=== PATIENT | female | born 1985 | race Caucasian/White ===

== ENCOUNTER 2019-12-27 07:25 | Emergency (ER) | payer BC ==
[~2019-12-27] VITALS: Ht 167.6 cm; Wt 104.3 kg
[2019-12-27 07:33] VITALS: BP 119/69
--- NOTE | 2019-12-27 07:37 | NUR ---
Pt ambulated to restroom to provide urine sample
--- NOTE | 2019-12-27 07:49 | NUR ---
34 y/o F presents to ER c/o N/V since 6pm last night, approx 10 episodes. Per pt her last meal was 12/25/19. Pt has constant, sharp epigastric pain. Pain level 10/10. Per pt she had x2 episodes of diarrhea on Monday and x1 episode on Monday. Pt A&O x4. Respirations even and unlabored. Pt has tachycardia at 123. HOB elevated, bed in lowest position, side rail up x1. Waiting for ERMD to evaluate pt. Allergies: NKA Med hx: None
--- NOTE | 2019-12-27 07:54 | NUR ---
Dr. Stockton is evaluating the patient at bedside.
[2019-12-27] MEDS ORDERED: KETOROLAC 30 MG/ML VIAL IVP ONE (08:00)
[2019-12-27] MEDS ORDERED: NACL 0.9% 1,000 ML IV ONE (08:00)
[2019-12-27] MEDS ORDERED: ONDANSETRON 4 MG/2 ML VIAL IVP ONE (08:00)
--- NOTE | 2019-12-27 08:15 | NUR ---
Lab at bedside
[2019-12-27 08:26] LABS: BASOPHILS # (AUTO) 0.1 K/uL (0.00-0.22); BASOPHILS % (AUTO) 0.9 % (0.0-2.0); EOSINOPHILS % (AUTO) 0.1 % (0.0-4.0); HEMATOCRIT 35.5 % (36-48); HEMOGLOBIN 11.5 g/dL (12.0-16.0); LYMPHOCYTES # (AUTO) 0.5 K/uL (2.5-16.5); MEAN CORPUSCULAR HEMOGLOBIN 27 pg (27-31); MEAN CORPUSCULAR HGB CONC 32 g/dL (33-37); MONOCYTES # (AUTO) 0.5 K/uL (0.8-1.0); NEUTROPHILS # (AUTO) 4.8 K/uL (1.8-7.7); PLATELET COUNT (AUTO) 205 K/uL (140-450); RED BLOOD CELL COUNT(AUTO) 4.33 MIL/uL (4.20-5.40); RED CELL DISTRIBUTION WIDTH 14.6 % (11.6-13.7); WHITE BLOOD COUNT (AUTO) 5.8 K/uL (4.8-10.8)
[2019-12-27 08:43] LABS: APPEARANCE,URINE CLOUDY (CLEAR); BILIRUBIN,URINE 1+ (NEGATIVE); BLOOD, URINE 3+ (NEGATIVE); COLOR,URINE YELLOW (YELLOW); LEUKOCYTE ESTERASE ,URINE TRACE (NEGATIVE); NITRITE, URINE NEGATIVE (NEGATIVE); UGLUCOSE NEGATIVE (NEGATIVE)
[2019-12-27 08:49] LABS: URINE AMORPHOUS URATE 1+ /HPF (None Seen)
[2019-12-27 08:56] LABS: ANION GAP 12.3 (8-16); CARBON DIOXIDE 26.5 mmol/L (21-32); CREATININE 1.1 mg/dL (0.6-1.3); POTASSIUM 3.8 mmol/L (3.5-5.1); TOTAL BILIRUBIN 0.6 mg/dL (0.0-1.0)
[2019-12-27] MEDS ORDERED: cefTRIAXone 1,000 MG VIAL ONE (09:13)
--- NOTE | 2019-12-27 10:32 | NUR ---
Dr. Stockton is evaluating the patient at bedside.
[2019-12-27 10:35] VITALS: BP 119/69
--- NOTE | 2019-12-27 10:35 | NUR ---
Patient discharged with v/s stable. Written and verbal after care instructions given and explained. Patient alert, oriented and verbalized understanding of instructions. Ambulatory with steady gait. All questions addressed prior to discharge. ID band removed. Patient advised to follow up with PMD. Rx of ZOFRAN,MACROBID given. Patient educated on indication of medication including possible reaction and side effects. Opportunity to ask questions provided and answered. D/C BY DR HENDERSON
== END 2019-12-27 10:33 | disposition home or self-care (01) ==
LOC: MED 07:25
DX: N39.0 Urinary tract infection, site not specified (principal)
CPT/HCPCS: 36415; 80053; 81001; 81025; 83690; 85025; 87086; 96361; 96365; 96375; 99283; J0696; J1885; J2405; J7030

== ENCOUNTER 2022-08-06 14:08 | Emergency (ER) | payer BC, OTHER ==
[~2022-08-06] VITALS: Ht 170.2 cm; Wt 112.9 kg
[2022-08-06 14:09] VITALS: BP 148/91
--- NOTE | 2022-08-06 14:34 | NUR ---
BIB SELF C/O 08/29 RIGHT SHOULDER PAIN X 4 DAYS.DENIES TRAUMA. DENIES N/V/D; SKIN IS PINK/WARM/DRY; AAOX4 WITH EVEN AND STEADY GAIT; LUNGS CLEAR BL; HR EVEN AND REGULAR; PT DENIES ANY FEVER, CP, SOB, OR COUGH AT THIS TIME.
--- NOTE | 2022-08-06 14:48 | NUR ---
Patient being evaluated by DOMI LANCASTER at TRIAGE ROOM.
[2022-08-06] MEDS ORDERED: KETOROLAC 30 MG/ML VIAL IM ONE (14:55)
--- NOTE | 2022-08-06 15:06 | NUR ---
SLING APPLIED TO R ARM. + CMS
[2022-08-06] MEDS ORDERED: METH-1681 PO (16:08)
[2022-08-06] MEDS ORDERED: LID5T TP (16:08)
[2022-08-06] MEDS ORDERED: NAPR-54 PO (16:08)
[2022-08-06 16:15] VITALS: BP 125/87
--- NOTE | 2022-08-06 16:15 | NUR ---
Patient discharged with v/s stable. Written and verbal after care instructions given and explained. Patient alert, oriented and verbalized understanding of instructions. Ambulatory with steady gait. All questions addressed prior to discharge. ID band removed. Patient advised to follow up with PMD. Rx of ROBAXIN, NAPROSYN & LIDODERM given. Patient educated on indication of medication including possible reaction and side effects. Opportunity to ask questions provided and answered.
== END 2022-08-06 16:15 | disposition home or self-care (01) ==
LOC: MED 14:08
DX: S46.812A Strain of other muscles, fascia and tendons at shoulder and upper arm level, left arm, initial encounter (principal); Z79.899 Other long term (current) drug therapy; X58.XXXA Exposure to other specified factors, initial encounter; Y93.89 Activity, other specified; Y92.89 Other specified places as the place of occurrence of the external cause; Y99.8 Other external cause status
CPT/HCPCS: 73030; 96372; 99283; J1885

== ENCOUNTER 2023-01-11 21:18 | Emergency (ER) | payer OTHER ==
[~2023-01-11] VITALS: Ht 170.2 cm; Wt 113.4 kg
[~2023-01-11 21:18] MED LIST: LID5T TP; METH-1681 PO; NAPR-54 PO
--- NOTE | 2023-01-11 21:24 | NUR ---
Tash aguila in [facility] - 01/11/23 at [email or web address] Stockton examining patient.
[2023-01-11 21:46] VITALS: BP 142/86
--- NOTE | 2023-01-11 22:05 | NUR ---
Patient taken to X-ray via WC,
--- NOTE | 2023-01-11 22:21 | NUR ---
Dr. Stockton examining patient.
[2023-01-11] MEDS ORDERED: NAPR-54 PO (22:23)
[2023-01-11] MEDS ORDERED: IBUPROFEN 600 MG TAB PO ONE (22:25)
[2023-01-11 22:30] VITALS: BP 132/86
--- NOTE | 2023-01-11 22:30 | NUR ---
Patient discharged with v/s stable. Written and verbal after care instructions given and explained by Dr. Stockton. Patient alert, oriented and verbalized understanding of instructions. Ambulatory with steady gait. All questions addressed prior to discharge. ID band removed. Patient advised to follow up with PMD. Rx of Naproxen given. Patient educated on indication of medication including possible reaction and side effects. Opportunity to ask questions provided and answered.
== END 2023-01-11 22:30 | disposition home or self-care (01) ==
LOC: MED 21:18
DX: S50.02XA Contusion of left elbow, initial encounter (principal); Z98.890 Other specified postprocedural states; Z79.899 Other long term (current) drug therapy; Z79.1 Long term (current) use of non-steroidal anti-inflammatories (NSAID); W01.0XXA Fall on same level from slipping, tripping and stumbling without subsequent striking against object, initial encounter; Y92.89 Other specified places as the place of occurrence of the external cause; Y93.89 Activity, other specified; Y99.8 Other external cause status
CPT/HCPCS: 73080; 99283

== ENCOUNTER 2024-03-14 17:16 | Emergency (ER) | payer OTHER ==
[~2024-03-14] VITALS: Ht 170.2 cm; Wt 104.3 kg
[~2024-03-14 17:16] MED LIST changes: +NAPR-337 PO; -NAPR-54 PO
[2024-03-14 17:20] VITALS: BP 121/71; PULSE 79; RESP 17; TEMP 98.6; O2SAT 99
[2024-03-14 19:15] VITALS: BP 121/71; PULSE 79; RESP 17; TEMP 98.6; O2SAT 99
[2024-03-14] MEDS ORDERED: SUD30 PO (19:24)
[2024-03-14] MEDS ORDERED: ALBU0.0912 IH (19:24)
[2024-03-17] MEDS ORDERED: AMOX500C25 PO (13:41)
== END 2024-03-14 19:34 | disposition home or self-care (01) ==
LOC: MED 17:16
DX: J06.9 Acute upper respiratory infection, unspecified (principal); R03.0 Elevated blood-pressure reading, without diagnosis of hypertension; Z79.1 Long term (current) use of non-steroidal anti-inflammatories (NSAID); Z79.899 Other long term (current) drug therapy
CPT/HCPCS: 71045; 87081; 99284